=== PATIENT | male | born 1950 | race Two or more races ===

== ENCOUNTER 2016-11-20 14:49 | Emergency (ER) | payer BC ==
--- NOTE | 2016-11-20 14:54 | PDOC ---
History of Present Illness <Jessie Villalobos - Last Filed: 11/20/16 15:10> - General History Source: Patient Exam Limitations: No Limitations - History of Present Illness Initial Comments: 11/20/16 15:00 The patient is a 66 year old male, with significant past medical history of diabetes and HTN, who presents today complaining of left sided toothache and fever for 2 days. The patient states that the pain has progressively worsened and has become unbearable. The patient is from [place] and is unable to visit his dentist. Denies chills, nausea, vomiting. Denies sore throat. Allergies:penicillin <Shreya Segovia - Last Filed: 11/20/16 15:19> - General Chief Complaint: Pain, Acute Stated Complaint: tooth ache,fever Time Seen by Provider: 11/20/16 14:53 Past History - Past Medical History Diabetes: Yes HTN: Yes - Surgical History Abdominal Surgery: Yes (inguinal hernia) - Psycho/Social/Smoking Cessation Hx Anxiety: No Suicidal Ideation: No Smoking History: Never smoked Substance Use Type: None <Jessie Villalobos - Last Filed: 11/20/16 15:10> <Shreya Segovia - Last Filed: 11/20/16 15:19> - Past Medical History Allergies/Adverse Reactions: Allergies Allergy/AdvReac Type Severity Reaction Status Date / Time Penicillins AdvReac Intermediate Itching Verified 11/20/16 14:56 capsule Allergy Mild Itching Uncoded 11/20/16 15:07 Home Medications: Ambulatory Orders Clindamycin Oral Solution [Cleocin Oral Solution -] 450 mg PO Q8H #630 ml Ibuprofen [Motrin -] 600 mg PO TID PRN #21 tablet 11/20/16 Metformin HCl 0 mg PO ASDIR 11/20/16 Sitagliptin Phosphate [Januvia] 0 mg PO ASDIR 11/20/16 Review of Systems - Review of Systems Able to Perform ROS?: Yes Comments:: 11/20/16 15:04 GENERAL/CONSTITUTIONAL: +fever. No chills. No weakness. HEAD, EYES, EARS, NOSE AND THROAT: +left sided tooth ache. No change in vision. No ear pain or discharge. No sore throat. SKIN: No rash NEUROLOGIC: No headache, vertigo, loss of consciousness, or change in strength/ sensation. <Shreya Segovia - Last Filed: 11/20/16 15:19> *Physical Exam - Physical Exam Comments: GENERAL: Awake, alert, and fully oriented, in no acute distress HEAD: No signs of trauma EYES: PERRLA, EOMI, sclera anicteric, conjunctiva clear ENT: Auricles normal inspection, hearing grossly normal, nares patent, oropharynx clear without exudates. Moist mucosa. +Pain to percussion of tooth # 16, with large area of decay to the same. No swelling to the gingiva. NECK: Normal ROM, supple, no lymphadenopathy, JVD, or masses SKIN: Warm, Dry, normal turgor, no rashes or lesions noted. <Jessie Villalobos - Last Filed: 11/20/16 15:10> - Vital Signs Last Vital Signs Temp Pulse Resp BP Pulse Ox 98.1 F 79 18 146/81 98 11/20/16 14:50 11/20/16 14:50 11/20/16 14:50 11/20/16 14:50 11/20/16 14:50 <Shreya Segovia - Last Filed: 11/20/16 15:19> Medical Decision Making - Medical Decision Making 11/20/16 15:10 Pt is allergic to penicillin, also allergic to capsules. Clinda is not available in tablet form, but is available in liquid, which I will send to pharmacy. Pt also given information for two local dental urgent cares. <Jessie Villalobos - Last Filed: 11/20/16 15:10> *DC/Admit/Observation/Transfer - Discharge Dispostion Admit: No <Jessie Villalobos - Last Filed: 11/20/16 15:10> - Attestations Scribe Attestion: 11/20/16 15:04 Documentation prepared by LUIS ALFREDO Salter, acting as medical assisting program director for Jessie Villalobos MD. <Shreya Segovia - Last Filed: 11/20/16 15:19> Diagnosis at time of Disposition: Dental caries, Pericoronitis - Discharge Dispostion Disposition: HOME Condition at time of disposition: Stable - Prescriptions Prescriptions: Clindamycin Oral Solution [Cleocin Oral Solution -] 450 mg PO Q8H #630 ml Ibuprofen [Motrin -] 600 mg PO TID PRN #21 tablet PRN Reason: Pain - Patient Instructions Printed Discharge Instructions: DI for Tooth Decay
[2016-11-20 14:55] VITALS: BP 146/81; PULSE 79; TEMP 98.1; BMI 26.4
[2016-11-20] MEDS ORDERED: CLINDAMYCIN HCL 150 MG CAPSULE (FP) PO ONE (14:55)
[2016-11-20] MEDS ORDERED: CLINDAMYCIN HCL 150 MG CAPSULE (FP) ONE (15:03)
== END 2016-11-20 15:17 | disposition home or self-care (01) ==
LOC: FER 14:49
DX: K05.30 Chronic periodontitis, unspecified (principal); K02.9 Dental caries, unspecified; E11.9 Type 2 diabetes mellitus without complications; I10 Essential (primary) hypertension
CPT/HCPCS: 99282-25